=== PATIENT | male | born 1990 | race Caucasian/White ===

== ENCOUNTER 2022-02-16 13:31 | Emergency (ER) | payer BC | END 2022-02-16 16:34 | disposition home or self-care (01) | LOC: JP.ED 13:31 | DX: S49.92XA Unspecified injury of left shoulder and upper arm, initial encounter (principal); F17.210 Nicotine dependence, cigarettes, uncomplicated; Y04.0XXA Assault by unarmed brawl or fight, initial encounter | CPT/HCPCS: 73030-26-LT; 73030-LT; 99283-25 ==